=== PATIENT | male | born 1945 | race Native Hawaiian/Other Pacific Islander ===

== ENCOUNTER 2023-07-16 21:42 | Emergency (ER) | payer OTHER ==
[~2023-07-16] VITALS: Ht 170.2 cm; Wt 70.8 kg
[2023-07-16 22:03] LABS: PLATELET COUNT 236 K/uL (142-355)
[2023-07-16 22:10] LABS: POTASSIUM 3.9 mmol/L (3.6-5.2)
[2023-07-16 22:28] VITALS: BP 126/96; TEMP 98.1
[2023-07-17] MEDS ORDERED: LORA0.5T17 PO (06:16)
[2023-07-17] MEDS ORDERED: QUET25TA2 PO (06:17)
[2023-07-17] MEDS ORDERED: HOUSE SUPPLEMENT PO (06:19)
[2023-07-17] MEDS ORDERED: PROSTAT SUGAR FREE PO (06:21)
[2023-07-17] MEDS ORDERED: CLARITIN10 M1 PO (06:22)
[2023-07-17] MEDS ORDERED: AMLODIPINE BESYLATE PO (06:22)
[2023-07-17] MEDS ORDERED: DIVALPROEX125 MG PO (06:23)
[2023-07-17] MEDS ORDERED: MILK OF MA400 MG/5 M PO (06:25)
[2023-07-17] MEDS ORDERED: VITAMIN C250 M2 PO (06:26)
[2023-07-31] MEDS ORDERED: NORVASC 5MG TAB PO (09:41)
[2023-07-31] MEDS ORDERED: LORA0.5T17 PO (09:42)
[2023-07-31] MEDS ORDERED: LORA10TA3 PO (09:42)
[2023-07-31] MEDS ORDERED: DIVALPROEX250 MG PO (09:42)
[2023-07-31] MEDS ORDERED: MAGNSUS68 PO (09:43)
[2023-07-31] MEDS ORDERED: QUET25TA2 PO (09:43)
[2023-07-31] MEDS ORDERED: MEGE40TA32 PO (09:43)
== END 2023-07-16 22:28 | disposition still patient (30) ==
LOC: ED 21:42
PROVIDERS: Family Medicine
DX: G30.9 Alzheimer's disease, unspecified (principal); F02.80 Dementia in other diseases classified elsewhere, unspecified severity, without behavioral disturbance, psychotic disturbance, mood disturbance, and anxiety; F22 Delusional disorders; Z02.79 Encounter for issue of other medical certificate
CPT/HCPCS: 36415; 80053; 85027; 87635; 93005; 99283; U0003